=== PATIENT | female | born 1985 | race Caucasian/White ===

== ENCOUNTER → 2018-08-24 | Outpatient (CLI) | payer OTHER ==
[~2018-08-24] MED LIST: IBUP-1222 PO; IBUP200T49 PO; OXYC-302 PO
[2018-08-24 09:58] LABS: BASOPHILS # (AUTO) 0.02 x10^3/uL (0-0.1); BASOPHILS % (AUTO) 0 % (0-1); EOSINOPHILS # (AUTO) 0.07 x10^3/uL (0-0.4); EOSINOPHILS % (AUTO) 1 % (1-7); LYMPHOCYTES # (AUTO) 2.23 x10^3/uL (1-3.4); LYMPHOCYTES % (AUTO) 29 % (22-44); MD NO; MEAN CORPUSCULAR HEMOGLOBIN 31.1 pg (27.0-34.8); MEAN CORPUSCULAR HGB CONC 34.6 g/dL (32.4-35.8); MEAN CORPUSCULAR VOLUME 89.9 fL (80-100); MEAN PLATELET VOLUME 7.9 fL (7.4-10.4); MONOCYTES % (AUTO) 6 % (2-9); NEUTROPHILS # (AUTO) 4.98 x10^3/uL (1.8-6.8); NEUTROPHILS % (AUTO) 64 % (42-75); PLATELET COUNT 173 x10^3/uL (130-400); RED BLOOD COUNT 3.91 x10^6/uL (3.82-5.3); RED CELL DISTRIBUTION WIDTH 13.6 % (9.6-15.2)
== END | disposition home or self-care (01) ==
LOC: LAB 08:44
PROVIDERS: ATTEND Clinical Nurse Specialist Women's Health
DX: O09.292 Supervision of pregnancy with other poor reproductive or obstetric history, second trimester (principal); Z3A.00 Weeks of gestation of pregnancy not specified
CPT/HCPCS: 36415; 82950; 85025; 85027; 86592

== ENCOUNTER 2018-10-13 06:56 | Inpatient (IN) | payer OTHER ==
[~2018-10-13] VITALS: Ht 160 cm; Wt 73.0 kg
[2018-10-13] MEDS ORDERED: LIDOCAINE 1%, 20ML ONE (07:17)
[2018-10-13] MEDS ORDERED: MISOPROSTOL 200 MCG TABLET ONE (07:17)
[2018-10-13] MEDS ORDERED: OXYTOCIN 30U/ 0.9% NaCL 500ML 500 ML ONE ×3 (07:17→23:26)
[2018-10-13] MEDS ORDERED: NEWBORN KIT ONE (07:18)
[2018-10-13] MEDS ORDERED: D5%-LACTATED RINGERS 1,000 ML IV SCH (07:23)
[2018-10-13] MEDS ORDERED: OXYTOCIN 30U/ 0.9% NaCL 500ML 500 ML IV ONE (07:23)
[2018-10-13] MEDS ORDERED: OXYTOCIN 30U/ 0.9% NaCL 500ML 500 ML IV PRN (07:23)
[2018-10-13] MEDS ORDERED: ONDANSETRON 2MG/ML, 2ML IVPush PRN ×2 (07:30→11:30)
[2018-10-13] MEDS ORDERED: FENTANYL PF 100 MCG/2ML IV PRN (07:30)
[2018-10-13] MEDS ORDERED: FENTANYL PF 100 MCG/2ML IVPush PRN (07:30)
[2018-10-13 07:46] LABS: BASOPHILS # (AUTO) 0.02 x10^3/uL (0-0.1); BASOPHILS % (AUTO) 0 % (0-1); EOSINOPHILS # (AUTO) 0.23 x10^3/uL (0-0.4); EOSINOPHILS % (AUTO) 4 % (1-7); LYMPHOCYTES # (AUTO) 1.96 x10^3/uL (1-3.4); LYMPHOCYTES % (AUTO) 31 % (22-44); MD NO; MEAN CORPUSCULAR HEMOGLOBIN 29.5 pg (27.0-34.8); MEAN CORPUSCULAR HGB CONC 33.1 g/dL (32.4-35.8); MEAN CORPUSCULAR VOLUME 88.9 fL (80-100); MEAN PLATELET VOLUME 9.1 fL (7.4-10.4); MONOCYTES # (AUTO) 0.45 x10^3/uL (0.2-0.8); MONOCYTES % (AUTO) 7 % (2-9); NEUTROPHILS # (AUTO) 3.65 x10^3/uL (1.8-6.8); NEUTROPHILS % (AUTO) 58 % (42-75); PLATELET COUNT 188 x10^3/uL (130-400); RED BLOOD COUNT 4.52 x10^6/uL (3.82-5.3)
[2018-10-13] MEDS: LACTATED RINGERS 1,000 ML IV SCH ×2 (07:54→10:42)
[2018-10-13 08:01] VITALS: BP 107/73
[2018-10-13] MEDS ORDERED: FENTANYL/BUPIV./NS/PF 250 ML EPIDCONT SCH (11:29)
[2018-10-13] MEDS ORDERED: LACTATED RINGERS 1,000 ML IV SCH (11:29)
[2018-10-13] MEDS ORDERED: NALOXONE 0.4 MG/ML, 1ML IVPush PRN (11:30)
[2018-10-13] MEDS ORDERED: DIPHENHYDRAMINE 50 MG/ML, 1ML IVPush PRN (11:30)
[2018-10-13] MEDS ORDERED: LACTATED RINGERS 1,000 ML IVBOLUS PRN (11:30)
[2018-10-13] MEDS ORDERED: BUPIVACAINE 0.25% ONE (11:31)
[2018-10-13] MEDS ORDERED: ROPIvacaine/PF 0.2% , 100 ML ONE ×2 (11:31→20:37)
[2018-10-13] MEDS ORDERED: EPHEDRINE 50 MG/ML, 1ML ONE (12:05)
[2018-10-13] MEDS: EPHEDRINE 50 MG/ML, 1ML IVPush PRN ×2 (12:16→12:35)
[2018-10-13] MEDS ORDERED: FENTANYL/BUPIV./NS/PF 250 ML EPIDCONT ONE (20:36)
[2018-10-13] MEDS: OXYTOCIN 30U/ 0.9% NaCL 500ML 500 ML IV SCH (22:40)
[2018-10-13] MEDS ORDERED: OXYcodone/APAP 5/325MG TABLET PO PRN (23:00)
[2018-10-13] MEDS ORDERED: ONDANSETRON 2MG/ML, 2ML IV PRN (23:00)
[2018-10-13] MEDS ORDERED: IBUPROFEN 600 MG TABLET PO PRN (23:00)
[2018-10-13] MEDS ORDERED: DOCUSATE 100 MG CAPSULE PO PRN (23:00)
[2018-10-13] MEDS ORDERED: MISOPROSTOL 200 MCG TABLET PR PRN (23:00)
[2018-10-13] MEDS ORDERED: VALACYCLOVIR 500MG TABLET ONE (23:27)
[2018-10-14 00:20] VITALS: BP 104/68
[2018-10-14 04:20] VITALS: BP 101/64
[2018-10-14 06:46] LABS: BASOPHILS # (AUTO) 0.03 x10^3/uL (0-0.1); BASOPHILS % (AUTO) 0 % (0-1); EOSINOPHILS # (AUTO) 0.11 x10^3/uL (0-0.4); EOSINOPHILS % (AUTO) 1 % (1-7); LYMPHOCYTES # (AUTO) 1.91 x10^3/uL (1-3.4); LYMPHOCYTES % (AUTO) 16 % (22-44); MD NO; MEAN CORPUSCULAR HEMOGLOBIN 29.8 pg (27.0-34.8); MEAN CORPUSCULAR HGB CONC 33.3 g/dL (32.4-35.8); MEAN CORPUSCULAR VOLUME 89.6 fL (80-100); MEAN PLATELET VOLUME 9.3 fL (7.4-10.4); MONOCYTES # (AUTO) 0.66 x10^3/uL (0.2-0.8); MONOCYTES % (AUTO) 6 % (2-9); NEUTROPHILS # (AUTO) 9.01 x10^3/uL (1.8-6.8); NEUTROPHILS % (AUTO) 77 % (42-75); PLATELET COUNT 144 x10^3/uL (130-400); RED BLOOD COUNT 3.94 x10^6/uL (3.82-5.3); RED CELL DISTRIBUTION WIDTH 12.5 % (9.6-15.2)
[2018-10-14 08:40] VITALS: BP 108/71
[2018-10-14] MEDS: OXYTOCIN 30U/ 0.9% NaCL 500ML 500 ML IV SCH (08:42)
[2018-10-14] MEDS ORDERED: PRENATAL VIT/IRON/FA 1 EACH TABLET PO SCH (09:00)
[2018-10-14] MEDS ORDERED: IBUP-1222 PO (11:48)
== END 2018-10-14 13:15 | disposition home or self-care (01) | DRG 807 ==
LOC: LDIP 06:56 → 2NW 10-14 00:10
PROVIDERS: ADMIT Obstetrics & Gynecology; ATTEND Obstetrics & Gynecology
PROC: 10907ZC Drainage of Amniotic Fluid, Therapeutic from Products of Conception, Via Natural or Artificial Opening (ICD-10-PCS; principal; 2018-10-13)
PROC: 10E0XZZ Delivery of Products of Conception, External Approach (ICD-10-PCS; 2018-10-13)
PROC: 00HU33Z Insertion of Infusion Device into Spinal Canal, Percutaneous Approach (ICD-10-PCS; 2018-10-13)
DX: O33.9 Maternal care for disproportion, unspecified (principal); Z37.0 Single live birth; O99.344 Other mental disorders complicating childbirth; F41.8 Other specified anxiety disorders; O69.81X0 Labor and delivery complicated by cord around neck, without compression, not applicable or unspecified; Z3A.39 39 weeks gestation of pregnancy
CPT/HCPCS: 36415; 85025; 86850; 86900; G0378; J2590; J7120